=== PATIENT | female | born 1980 | race American Indian/Alaskan Native ===

== ENCOUNTER 2016-12-23 02:34 | Emergency (ER) | payer MEDICAID ==
[2016-12-23 08:32] VITALS: BP 140/87
[2016-12-23 09:06] LABS: Bilirubin,Urine NEG (Negative); Blood,Urine SM (Negative); Ketones,Urine 20 mg/dL (Negative); Leukocyte Esterase,Urine TR (Negative); Mucus,Urine 1+ /HPF; Nitrite,Urine NEG (Negative); Protein,Urine <15 mg/dL mg/dL (Negative); Urobilinogen,Urine < 2.0 mg/dL (<2.0)
--- NOTE | 2016-12-23 09:55 | Emergency Department Report ---
HPI - General Chief Complaint: Abdominal Pain Time Seen by Provider: 12/23/16 09:07 - HPI HPI: Chief complaint: Abdominal pain and vaginal discharge HPI: Patient is a 36-year-old female who states she's been having abdominal pain over the last 4 days chart in her pelvic area and is now generalized. Patient complains of vaginal itching and discharge. Patient states she tried Monistat without any improvement. Patient states then she put vinegar and Clorox in her bath and vaginally states her discharge is now yellow. Patient denies nausea, vomiting, diarrhea, fever, cough, cold. Patient has history of chronic right hip pain and states several members of her family have had to have hip replacements. Mode of arrival: [private car Source: [Patient] Began: See above Duration: See above Context: See above. Patient states she is currently not sexually active. Patient states she was younger she had gonorrhea. Quality: Dull Severity: 8 out of 10 Improved with: Nothing Worsened with: Nothing. Denies dyspareunia Associated signs and symptoms: See above ED Past Medical Hx - Past Medical History Previous Medical History?: Yes Hx Hypertension: Yes - Surgical History Past Surgical History?: Yes Additional Surgical History: c- section x5 - Medications Home Medications: Home Medications Medication Instructions Recorded Confirmed Last Taken Type Fluconazole [Diflucan TAB] 150 mg PO ONCE #1 tablet 12/23/16 Unknown Rx metroNIDAZOLE [Flagyl] 500 mg PO Q12HR #14 tab 12/23/16 Unknown Rx ED Review of Systems ROS: Stated complaint: ABD PAIN/LOWER BACK/HIP PAIN Other details as noted in HPI ROS Constitutional: No fever ENT: No uri symptoms Cardiovascular: No chest pain Respiratory: No sob or cough GI: No nausea vomiting or diarrhea : No dysuria frequency or urgency, Skin: No rash Neuro: No focal weakness or numbness Psych: No depression Aris/lymph: No edema Physical Exam - Physical Exam Vital Signs: Vital Signs 12/23/16 12/23/16 12/23/16 02:42 02:43 08:15 Temperature 99 F 99 F Pulse Rate 98 H 98 H Respiratory 20 20 Rate Blood Pressure 140/88 140/87 Blood Pressure 140/88 [Right] O2 Sat by Pulse 98 98 Oximetry 12/23/16 12/23/16 08:20 08:32 Temperature 98.2 F Pulse Rate Respiratory 16 Rate Blood Pressure 140/87 Blood Pressure [Right] O2 Sat by Pulse 100 99 Oximetry Physical Exam: GENERAL: The patient is an obese -[place] female no acute distress. HEENT: Normocephalic. Atraumatic. Extraocular motions are intact. Patient has moist mucous membranes. NECK: Supple. No meningitic signs are noted. There is no adenopathy noted. CHEST/LUNGS: Clear to auscultation. There is no respiratory distress noted. HEART/CARDIOVASCULAR: Regular. There is no tachycardia. There is no gallop rub or murmur. ABDOMEN: Abdomen is soft, nontender. Patient has normal bowel sounds. There is no abdominal distention. : Scant odorous yellowish-white vaginal discharge. No cervical motion tenderness. SKIN: There is no rash. There is no edema. There is no diaphoresis. NEURO: The patient is awake, alert, and oriented. The patient is cooperative. The patient has no focal neurologic deficits. The patient has normal speech. MUSCULOSKELETAL: There is no tenderness or deformity. There is no limitation range of motion. There is no evidence of acute injury. ED Course Vital Signs 12/23/16 12/23/16 12/23/16 02:42 02:43 08:15 Temperature 99 F 99 F Pulse Rate 98 H 98 H Respiratory 20 20 Rate Blood Pressure 140/88 140/87 Blood Pressure 140/88 [Right] O2 Sat by Pulse 98 98 Oximetry 12/23/16 12/23/16 08:20 08:32 Temperature 98.2 F Pulse Rate Respiratory 16 Rate Blood Pressure 140/87 Blood Pressure [Right] O2 Sat by Pulse 100 99 Oximetry ED Medical Decision Making - Lab Data Result diagrams: 12/23/16 11:08 12/23/16 09:21 Laboratory Tests 12/23/16 08:35 Ur Leukocyte Esterase Tr Urine WBC (Auto) 12.0 H Urine RBC (Auto) 5.0 U Epithel Cells (Auto) 1.0 With prep positive for Trichomonas Critical care attestation.: If time is entered above; I have spent that time in minutes in the direct care of this critically ill patient, excluding procedure time. ED Disposition Clinical Impression: Trichomonas infection Disposition: DISCHARGED TO HOME OR SELFCARE Is pt being admited?: No Does the pt Need Aspirin: No Condition: Stable Instructions: Trichomoniasis (ED), Abdominal Pain (ED) Prescriptions: Fluconazole [Diflucan TAB] 150 mg PO ONCE #1 tablet metroNIDAZOLE [Flagyl] 500 mg PO Q12HR #14 tab Referrals: PRIMARY CARE,MD [Primary Care Provider] - 3-5 Days Time of Disposition: 11:17
[2016-12-23 10:12] LABS: Alanine Aminotransferase 16 units/L (7-56); Albumin 3.8 g/dL (3.9-5); Alkaline Phosphatase 78 units/L (35-129); Anion Gap 20 mmol/L; Bilirubin,Total 0.4 mg/dL (0.1-1.2); Blood Urea Nitrogen 6 mg/dL (7-17); Carbon Dioxide 19 mmol/L (22-30); Chloride 107.7 mmol/L (98-107); Glucose 80 mg/dL (65-100); Lipase 24 units/L (13-60); Potassium 4.3 mmol/L (3.6-5.0); Sodium 142 mmol/L (137-145); Total Protein 7.7 g/dL (6.3-8.2)
[2016-12-23 10:16] LABS: Bilirubin,Direct < 0.2 mg/dL (0-0.2)
--- NOTE | 2016-12-23 10:19 | XRay Report ---
RIGHT HIP, 2 views: HISTORY: Right hip pain. The bony architecture is intact without evidence of fracture or dislocation. No significant soft tissue abnormality is seen. IMPRESSION: Unremarkable right hip.
[2016-12-23] MEDS ORDERED: ZITHROMAX PO ONE ×2 (11:05→11:34)
[2016-12-23] MEDS ORDERED: XYLOCAINE 1% MPF 5 mL INFILTRATI ONE (11:05)
[2016-12-23] MEDS ORDERED: ROCEPHIN IM ONE (11:05)
[2016-12-23 11:23] LABS: Basophils % (Auto) 0.7 % (0.0-1.8); Eosinophils % (Auto) 2.2 % (0.0-4.3); Hematocrit 38.6 % (30.3-42.9); Mean Corpuscular HGB Conc 31 % (30-34); Mean Corpuscular Hemoglobin 27 pg (28-32); Mean Corpuscular Volume 86 fl (79-97); Platelet Count 252 K/mm3 (140-440); Red Blood Count 4.47 M/mm3 (3.65-5.03); Red Cell Distribution Width 18.1 % (13.2-15.2)
== END 2016-12-23 11:45 | disposition home or self-care (01) ==
LOC: ED 02:34
DX: A59.9 Trichomoniasis, unspecified (principal); I10 Essential (primary) hypertension; Z98.890 Other specified postprocedural states
CPT/HCPCS: 36415; 73502; 80048; 80074; 81001; 81025; 83690; 85025; 87210; 87591; 96372; 99284; J0696

== ENCOUNTER 2017-01-28 03:13 | Emergency (ER) | payer MEDICAID ==
[2017-01-28 04:18] LABS: Basophils % (Auto) 0.6 % (0.0-1.8); Eosinophils % (Auto) 0.2 % (0.0-4.3); Hematocrit 42.6 % (30.3-42.9); Hemoglobin 13.6 gm/dl (10.1-14.3); Mean Corpuscular HGB Conc 32 % (30-34); Mean Corpuscular Hemoglobin 27 pg (28-32); Mean Corpuscular Volume 85 fl (79-97); Platelet Count 287 K/mm3 (140-440); Red Blood Count 5.02 M/mm3 (3.65-5.03); Red Cell Distribution Width 17.6 % (13.2-15.2); White Blood Count 6.2 K/mm3 (4.5-11.0)
[2017-01-28 04:26] LABS: Albumin/Globulin Ratio 0.9 %; Bilirubin,Total 0.3 mg/dL (0.1-1.2); Blood Urea Nitrogen 9 mg/dL (7-17); Calcium 9.3 mg/dL (8.4-10.2); Carbon Dioxide 16 mmol/L (22-30); Chloride 101.6 mmol/L (98-107); Glucose 134 mg/dL (65-100); Lipase 24 units/L (13-60); Sodium 138 mmol/L (137-145); Total Protein 8.5 g/dL (6.3-8.2)
[2017-01-28 04:37] LABS: Bacteria,Urine 1+ /HPF (Negative); Bilirubin,Urine NEG (Negative); Blood,Urine LG (Negative); Ketones,Urine 80 mg/dL (Negative); Leukocyte Esterase,Urine TR (Negative); Nitrite,Urine NEG (Negative); Sperm,Urine 2+ /HPF (NP); Urobilinogen,Urine < 2.0 mg/dL (<2.0)
[2017-01-28 04:38] LABS: RBC,Urine > 182.0 /HPF (0.0-6.0); WBC,Urine > 182.0 /HPF (0.0-6.0)
[2017-01-28 04:54] LABS: Alanine Aminotransferase 42 units/L (7-56); Alkaline Phosphatase 71 units/L (35-129); Anion Gap 25 mmol/L; Potassium 4.7 mmol/L (3.6-5.0)
[2017-01-28 05:24] LABS: INR 1.02 (0.87-1.13)
[2017-01-28 05:25] LABS: Partial Thromboplastin Time 30.6 Sec. (24.2-36.6)
--- NOTE | 2017-01-28 07:31 | Emergency Department Report ---
ED Abdominal Pain HPI - General Chief Complaint: Abdominal Pain Stated Complaint: ABD PAIN/N/V Time Seen by Provider: 01/28/17 07:22 Source: patient Mode of arrival: Ambulatory Limitations: No Limitations - History of Present Illness Initial Comments: 36-year-old female presents to the emergency department complaining of abdominal pain. Patient states for the past 5 days she has had constant, dull epigastric abdominal pain that radiates into her lower chest and inferiorly to her suprapubic region. She also reports nausea and vomiting. Patient is also reporting intermittent muscle cramps. There has been no fever or diarrhea. Patient denies difficulty breathing. There are no other complaints. MD Complaint: abdominal pain -: Gradual, days(s) (5) Location: epigastric Radiation: suprapubic, chest Migration to: no migration Severity: moderate Severity scale (0 -10): 5 Quality: dull Consistency: constant Improves With: nothing Worsens With: nothing Associated Symptoms: nausea, vomiting - Related Data Previous Rx's Medication Instructions Recorded Last Taken Type HYDROcodone/APAP 5-325 [[place] 1 each PO Q6HR PRN #20 tablet 01/28/17 Unknown Rx 5/325] Ondansetron [Zofran TAB] 4 mg PO Q8HR PRN #20 tablet 01/28/17 Unknown Rx Allergies Allergy/AdvReac Type Severity Reaction Status Date / Time butorphanol tartrate Allergy Itching Verified 12/23/16 02:46 [From Stadol] promethazine HCl Allergy Itching Verified 12/23/16 02:46 [From Phenergan] ED Review of Systems ROS: Stated complaint: ABD PAIN/N/V Other details as noted in HPI Comment: All other systems reviewed and negative Gastrointestinal: abdominal pain, nausea, vomiting ED Past Medical Hx - Past Medical History Previous Medical History?: Yes Hx Hypertension: Yes - Surgical History Past Surgical History?: Yes Additional Surgical History: c- section x5 - Family History Family history: no significant - Social History Smoking Status: Current Every Day Smoker Substance Use Type: Alcohol - Medications Home Medications: Home Medications Medication Instructions Recorded Confirmed Last Taken Type HYDROcodone/APAP 5-325 [[place] 1 each PO Q6HR PRN #20 tablet 01/28/17 Unknown Rx 5/325] Ondansetron [Zofran TAB] 4 mg PO Q8HR PRN #20 tablet 01/28/17 Unknown Rx ED Physical Exam - General Limitations: No Limitations General appearance: alert, in no apparent distress - Head Head exam: Present: atraumatic, normocephalic - Eye Eye exam: Present: normal appearance, PERRL, EOMI - ENT ENT exam: Present: normal exam, normal orophraynx, mucous membranes moist - Neck Neck exam: Present: normal inspection, full ROM. Absent: tenderness - Respiratory Respiratory exam: Present: normal lung sounds bilaterally. Absent: respiratory distress - Cardiovascular Cardiovascular Exam: Present: regular rate, normal rhythm, normal heart sounds - GI/Abdominal GI/Abdominal exam: Present: soft, tenderness (mild epigastric tenderness to palpation), normal bowel sounds. Absent: distended, guarding, rebound - Extremities Exam Extremities exam: Present: normal inspection, full ROM. Absent: tenderness - Back Exam Back exam: Present: normal inspection, full ROM. Absent: tenderness - Neurological Exam Neurological exam: Present: alert, oriented X3. Absent: motor sensory deficit - Skin Skin exam: Present: warm, dry, intact ED Course Vital Signs 01/28/17 01/28/17 01/28/17 03:29 07:23 07:25 Temperature 97.4 F L 97.5 F L Pulse Rate 79 72 Respiratory 26 H 26 H Rate Blood Pressure Blood Pressure 140/95 167/97 [Right] O2 Sat by Pulse 99 99 100 Oximetry 01/28/17 01/28/17 01/28/17 07:31 07:37 07:41 Temperature Pulse Rate 89 81 Respiratory 31 H 26 H 12 Rate Blood Pressure 213/163 213/163 Blood Pressure [Right] O2 Sat by Pulse 100 100 94 Oximetry 01/28/17 01/28/17 01/28/17 07:51 08:00 08:37 Temperature Pulse Rate 79 84 Respiratory 21 16 Rate Blood Pressure 174/107 174/107 174/107 Blood Pressure [Right] O2 Sat by Pulse 99 100 Oximetry 01/28/17 01/28/17 01/28/17 08:41 08:46 08:51 Temperature Pulse Rate 72 72 69 Respiratory 13 18 14 Rate Blood Pressure 152/86 158/89 Blood Pressure 158/86 [Right] O2 Sat by Pulse 98 98 98 Oximetry 01/28/17 01/28/17 01/28/17 09:00 09:11 09:21 Temperature Pulse Rate 68 76 70 Respiratory 13 27 H 23 Rate Blood Pressure 148/90 148/90 153/82 Blood Pressure [Right] O2 Sat by Pulse 97 96 97 Oximetry 01/28/17 01/28/17 01/28/17 09:30 09:41 09:51 Temperature Pulse Rate 78 Respiratory 14 Rate Blood Pressure 146/72 146/72 145/84 Blood Pressure [Right] O2 Sat by Pulse 98 99 96 Oximetry 01/28/17 01/28/17 01/28/17 10:00 10:11 10:21 Temperature Pulse Rate Respiratory Rate Blood Pressure 146/75 146/75 142/74 Blood Pressure [Right] O2 Sat by Pulse 97 98 97 Oximetry 01/28/17 01/28/17 01/28/17 10:31 10:41 10:51 Temperature Pulse Rate Respiratory Rate Blood Pressure 112/47 112/47 150/74 Blood Pressure [Right] O2 Sat by Pulse 97 97 99 Oximetry ED Medical Decision Making - Lab Data Result diagrams: 01/28/17 03:30 01/28/17 03:30 - EKG Data -: EKG Interpreted by Al EKG shows normal: sinus rhythm, axis, intervals, QRS complexes, ST-T waves Rate: normal - EKG Data When compared to previous EKG there are: no significant change Interpretation: normal EKG, unchanged when compared t (01/01/2011) - Radiology Data Radiology results: report reviewed CT of the abdomen and pelvis reveals no acute intra-abdominal abnormality. - Medical Decision Making Lab and imaging results reviewed and discussed with the patient. Patient states she is currently on her menstrual cycle, which explains her urinalysis results. Patient reports feeling better with IV medication and IV fluids. Patient will be discharged home at this time. - Differential Diagnosis abdominal pain, dehydration, pancreatitis, gastritis Critical care attestation.: If time is entered above; I have spent that time in minutes in the direct care of this critically ill patient, excluding procedure time. ED Disposition Clinical Impression: Abdominal pain Qualifiers: Abdominal location: epigastric Qualified Code(s): R10.13 - Epigastric pain Disposition: DISCHARGED TO HOME OR SELFCARE Is pt being admited?: No Condition: Stable Instructions: Abdominal Pain (ED) Prescriptions: HYDROcodone/APAP 5-325 [[place] 5/325] 1 each PO Q6HR PRN #20 tablet PRN Reason: Pain Ondansetron [Zofran TAB] 4 mg PO Q8HR PRN #20 tablet PRN Reason: Nausea And Vomiting Referrals: PRIMARY CARE, [Primary Care Provider] - 3-5 Days Time of Disposition: 11:28
[2017-01-28] MEDS: BENTYL IM ONE (07:55)
[2017-01-28] MEDS: NACL 0.9% 1000 ML 1,000 ML IV ONE (07:55)
[2017-01-28] MEDS: ZOFRAN IV ONE (07:55)
--- NOTE | 2017-01-28 08:45 | Cat Scan Report ---
CT SCAN OF THE ABDOMEN AND PELVIS WITH CONTRAST: HISTORY: Epigastric abdominal pain. TECHNIQUE: Helical CT in 1.25mm intervals following IV contrast. Sagittal and coronal reconstructions. FINDINGS: There is mild diffuse fatty infiltration of the liver parenchyma. No focal mass, enlargement or surface nodularity. No gallstones or biliary dilatation are noted. The spleen and pancreas demonstrate a normal size and attenuation with no evidence of abnormal mass. The kidneys are normal size, contour and position. There is a subtle perfusion defect in the superior left kidney which could represent an early pyelonephritis. The right kidney nephrogram is unremarkable. 1.3 cm cyst at the superior pole of the right kidney is noted. No mass or perinephric fluid. The adrenal glands are normal. There is no intestinal obstruction or ascites. Normal appendix. The abdominal aorta is normal. The uterus and adnexa are within normal limits. There is no evidence of peritoneal air or fluid. There is no evidence of any abnormal masses or fluid collections within the pelvis. No adenopathy is identified. The bladder is normal. IMPRESSION: Subtle perfusion defect in the superior left kidney. Is there clinical concern for left pyelonephritis? Mild hepatic steatosis.
[2017-01-28] MEDS: NACL ONE (09:09)
[2017-01-28] MEDS: MORPHINE IV ONE (10:00)
[2017-01-28 11:40] VITALS: BP 144/71
== END 2017-01-28 11:44 | disposition home or self-care (01) ==
LOC: ED 03:13
DX: R10.13 Epigastric pain (principal); I10 Essential (primary) hypertension; F17.200 Nicotine dependence, unspecified, uncomplicated
CPT/HCPCS: 36415; 74177; 80053; 81001; 83690; 84484; 84703; 85025; 85610; 85730; 93005; 93010; 96361; 96372; 96374; 96375; 99285; J0500; J2270; J2405; J7030; Q9967